=== PATIENT | male | born 1990 | race Hispanic/Latino ===

== ENCOUNTER 2022-06-02 20:11 | Emergency (ER) | payer BC, SELFPAY ==
[2022-06-02] MEDS ORDERED: Ketorolac Tromethamine 30 MG/ML VIAL ONE (20:54)
== END 2022-06-02 21:52 | disposition home or self-care (01) ==
LOC: ERS 20:11
DX: K08.89 Other specified disorders of teeth and supporting structures (principal)
CPT/HCPCS: 96372; 99282; J1885

== ENCOUNTER 2023-09-19 10:52 | Emergency (ER) | payer SELFPAY ==
[2023-09-19] MEDS ORDERED: Boostrix 0.5 ML (Tdap) VIAL (>/=7 yrs of age) ONE (11:12)
[2023-09-19] MEDS ORDERED: Lidocaine 1% w/Epinephrine 1:100K 20 ML VIAL ONE (11:22)
[2023-09-19] MEDS ORDERED: Bacitracin 1 PK ONE (12:06)
== END 2023-09-19 12:23 | disposition home or self-care (01) ==
LOC: ERS 10:52
DX: S81.812A Laceration without foreign body, left lower leg, initial encounter (principal); Z23 Encounter for immunization; F17.210 Nicotine dependence, cigarettes, uncomplicated; W29.3XXA Contact with powered garden and outdoor hand tools and machinery, initial encounter
CPT/HCPCS: 12004; 90471; 90715

== ENCOUNTER 2023-10-06 14:56 | Emergency (ER) | payer SELFPAY | END 2023-10-06 16:45 | disposition home or self-care (01) | LOC: ERS 14:56 | DX: S81.812D Laceration without foreign body, left lower leg, subsequent encounter (principal); F17.210 Nicotine dependence, cigarettes, uncomplicated ==